=== PATIENT | female | born 1965 | race Caucasian/White ===

== ENCOUNTER → 2023-06-21 13:01 | Outpatient (REF) | payer OTHER, SELFPAY | LOC: WDC 13:01 | PROVIDERS: ATTENDING PHYSICIAN Obstetrics & Gynecology; FAMILY PHYSICIAN Physician Assistant Medical | DX: Z12.31 Encounter for screening mammogram for malignant neoplasm of breast (principal) | CPT/HCPCS: 77063; 77067 ==

== ENCOUNTER → 2023-07-26 10:04 | Outpatient (REF) | payer OTHER, SELFPAY | LOC: WDC 10:04 | PROVIDERS: ATTENDING PHYSICIAN Obstetrics & Gynecology; FAMILY PHYSICIAN Physician Assistant Medical | DX: R92.2 Inconclusive mammogram (principal) | CPT/HCPCS: 76641 ==

== ENCOUNTER → 2024-02-22 08:36 | Outpatient (REF) | payer OTHER, SELFPAY | LOC: RAD 08:36 | PROVIDERS: ATTENDING PHYSICIAN Student in an Organized Health Care Education/Training Program | DX: R10.9 Unspecified abdominal pain (principal) | CPT/HCPCS: 74176 ==

== ENCOUNTER → 2024-07-22 13:23 | Outpatient (REF) | payer OTHER, SELFPAY | LOC: WDC 13:23 | PROVIDERS: ATTENDING PHYSICIAN Obstetrics & Gynecology; FAMILY PHYSICIAN Physician Assistant Medical | DX: Z12.31 Encounter for screening mammogram for malignant neoplasm of breast (principal) | CPT/HCPCS: 77063; 77067 ==

== ENCOUNTER → 2024-08-13 14:40 | Outpatient (REF) | payer OTHER, SELFPAY | LOC: RCS 14:40 | PROVIDERS: ATTENDING PHYSICIAN Internal Medicine Interventional Cardiology; FAMILY PHYSICIAN Physician Assistant Medical | DX: R00.2 Palpitations (principal); R94.31 Abnormal electrocardiogram [ECG] [EKG] | CPT/HCPCS: 93306 ==

== ENCOUNTER → 2025-04-21 07:35 | Outpatient (REF) | payer OTHER, SELFPAY | LOC: DHSLP 07:35 | PROVIDERS: ATTENDING PHYSICIAN Physician Assistant Medical; FAMILY PHYSICIAN Internal Medicine | DX: G47.33 Obstructive sleep apnea (adult) (pediatric) (principal) | CPT/HCPCS: 95800 ==

== ENCOUNTER → 2025-05-03 13:44 | Outpatient (REF) | payer OTHER, SELFPAY | LOC: HWRAD 13:44 | PROVIDERS: ATTENDING PHYSICIAN Nurse Practitioner Family; FAMILY PHYSICIAN Physician Assistant Medical | DX: R91.1 Solitary pulmonary nodule (principal) | CPT/HCPCS: 71250 ==